=== PATIENT | female | born 1990 | race Caucasian/White ===

== ENCOUNTER 2021-08-27 08:46 | Inpatient (IN) ==
[2021-08-27] MEDS ORDERED: OXYTOCIN 30 UNITS/500 ML BAG IV PRN ×2 (19:17)
[2021-08-27 19:35] LABS: Hematocrit (blood only) 40.7 % (37-47); Hemoglobin 13.9 g/dL (12.0-16.0); Mean Corpuscular Hemoglobin 30.7 pg (25-34); Mean Corpuscular Hgb Conc 34.2 g/dL (32-36); Mean Corpuscular Volume 89.8 fL (80-100); Mean Platelet Volume 11.5 fL (7.4-10.4); Platelet Count 195 K/uL (130-400); RDW Coefficient of Variation 13.8 % (11.5-14.5); RDW Standard Deviation 44.7 fL (36.4-46.3); Red Blood Count 4.53 M/uL (4.2-5.4); White Blood Count 10.78 K/uL (4.8-10.8)
--- NOTE | 2021-08-27 19:38 | History & Physical Report ---
Date of Service August 27, 2021 Assessment & Plan (1) Hypothyroid in , antepartum: Plan: 31yo at 39w2d GA. Presents for IOL for insulin dependent gDM. 1. Fetus: Cat 1 2. Labor: S/p Bobby. Pitocin per protocol 3. GBS negative 4. A2gDM: BG q2hr 5. Vitals: WNL (2) Epilepsy affecting , antepartum: (3) Insulin controlled gestational diabetes mellitus (GDM) during : Admission and Anticipated Discharge Date Admission Date: August 27, 2021 History of Present Illness Primary Care Provider: Tegan Watson 31yo at 39w2d GA. Presents for IOL for insulin dependent gDM. Complicated by: Hypothyroid *Check TFTs Q4wks(recurring order) PCP orders thyroid meds Epilepsy On Lamictal. 200 mg daily On extra folic acid Sees [facility] neuro, will make apt Unable to obtain heart views on anatomy * Echo (06/12/21 @ [facility] [place] - small aortic valve - repeat 4w later, similar findings, ok for delivery at [facility]. Rec echo after delivery. GDM on insulin *Wkly NSTs @32wks and Twice wkly @36wks *Serial growth US @28wks *Deliver by [facility] 07/27 LABS: OB Labs: Blood Type O Positive 01/26/21 Antibody Screen NEGATIVE 01/26/21 Hemoglobin 12.5 g/dL (12.0-16.0) 08/22/21 Hematocrit 38.1 % (37-47) 08/22/21 Mean Corpuscular Volume 90.9 fL (80-100) 08/22/21 Platelet Count 187 K/uL (130-400) 08/22/21 Rubella IgG Antibody Immune (Immune) 01/26/21 Rapid Plasma Reagin Nonreactive (Nonreactive) 01/26/21 Hepatitis B Surface Antigen Neg (Neg) 01/26/21 HIV (1&2) Ab and P24 Ag, 4th Gener Neg (Neg) 01/26/21 Glucose 1 Hour 50 gm Load 137 mg/dl (70-130) H 03/23/21 OB Optional Labs: Chlamydia trachomatis RNA NOT DETECTED (NOT DETECTED) 01/26/21 Neisseria gonorrhoeae RNA NOT DETECTED (NOT DETECTED) 01/26/21 Thyroid Stimulating Hormone (TSH) 2.357 uIu/ml (0.300-4.500) 08/16/21 Labs Reviewed: declines genetics/cf/sma. Allergies Allergy/AdvReac Type Severity Reaction Status Date / Time No Known Drug Allergies Allergy Verified 08/24/21 12:10 Home Medications Medication Instructions Recorded Confirmed Type escitalopram oxalate 20 mg tablet 20 mg PO DAILY 09/07/20 08/27/21 History (Lexapro) prenat.vits,stella,[id number] PO 09/07/20 08/24/21 History acetone (urine) test (Ketone Urine #50 ea 06/29/21 08/24/21 Rx Test) blood sugar diagnostic (OneTouch #150 ea 06/29/21 08/24/21 Rx Verio test strips) blood-glucose meter (OneTouch #1 ea 06/29/21 08/24/21 Rx Verio Flex meter) lancets 33 gauge (OneTouch Delica #150 ea 06/29/21 08/24/21 Rx Plus Lancet) insulin NPH isoph U-100 human 100 8 unit SUBCUT QPM #15 ml 07/17/21 08/27/21 Rx unit/mL (3 mL) subcutaneous pen (Novolin N Flexpen) pen needle, diabetic 32 gauge x #100 ea 07/17/21 08/24/21 Rx 5/32" (BD Ultra-Fine Laura Pen Needle) lamotrigine 200 mg tablet 200 mg PO DAILY #30 tab 07/19/21 08/27/21 Rx levothyroxine 50 mcg capsule 50 mcg PO DAILY 07/27/21 08/27/21 History [id number] 1 mg 1 tab PO DAILY 08/27/21 08/27/21 History tablet Patient History Medical History Abnormal electroencephalogram Anxiety Common migraine without aura Common migraine without aura Croup Depression Dysuria SABAS (generalized anxiety disorder) SABAS (generalized anxiety disorder) 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 Hypokalemia Varicella vaccination Surgical History S/P appendectomy S/P wisdom tooth extraction Family History (Updated 01/15/21 @ 11:05 by Oneida Guerrero) Sister Asthma Grandmother (Paternal) Diabetes Father Seizure disorder Migraine headache Denies family history of Ovarian cancer Breast cancer Colorectal cancer Social History (Updated 01/15/21 @ 11:06 by Oneida Guerrero) Smoking Status: Never smoker Hx Alcohol Use: No Hx Substance Use: No Preferred Language: Slovenian Communication Ability: Effective Academic Registrar Required: Voice Beliefs That Will Affect Care: None marital status: marital status details: Tong Santa [phone]) [phone] Current Living Situation: Spouse Current Living Situation Comment: lives with spouse, 3 dogs current occupational status: employed current occupation: [employer] Skills Feels Safe at Home: Yes Safety Concerns: Feels Safe At This Time Assistive Devices: None Physical Exam Genitourinary: Manual OB Exam: + cervical dilation 3 cm, + cervical effacement 70% and + station -2 OB Exam Monitor Tracing: + external FHT monitor used, + external uterine monitor used, + category I and + normal FHT variability; no early decelerations present, no late decelerations present and no variable decelerations Results & Data ([facility]) Vital Signs (Past 12 Hours) Vital Signs Pulse BP 08/27/21 19:22 136 H 128/87 Coding Level of Care Code None Diagnoses Hypothyroid in , antepartum O99.280; E03.9 Epilepsy affecting , antepartum O99.350; G40.909 Insulin controlled gestational diabetes mellitus (GDM) during O24.414
[2021-08-27] MEDS: LACTATED RINGER'S 1,000 ML IV PRN (20:34)
[2021-08-28] MEDS ORDERED: SODIUM CHLORIDE 0.9% INJ 10 ML VIAL ONE (00:59)
[2021-08-28] MEDS ORDERED: BUPIVACAINE 0.25% 30 ML VIAL ONE (00:59)
[2021-08-28] MEDS ORDERED: ePHEDrine sulfate 50 MG/ML AMP ONE (00:59)
[2021-08-28] MEDS ORDERED: fentaNYL citrate 100 MCG/2 ML VIAL ONE (00:59)
[2021-08-28] MEDS ORDERED: fentaNYL 2MCG/ML ROPIVACAINE 1.25MG/ML 100 ML BAG EPI ONE (01:00)
--- NOTE | 2021-08-28 01:00 | Labor Progress Brief Note ---
Date of Service August 28, 2021 Subjective Reason For Note: Routine Evaluation Assessment & Plan (1) Hypothyroid in , antepartum: Plan: 31yo at 39w2d GA. Presents for IOL for insulin dependent gDM. 1. Fetus: Cat 1 2. Labor: S/p Bobby. Pitocin per protocol, AROM clr 3. GBS negative 4. A2gDM: BG q2hr 5. Vitals: WNL (2) Epilepsy affecting , antepartum: (3) Insulin controlled gestational diabetes mellitus (GDM) during : Admission and Anticipated Discharge Date Admission Date: August 27, 2021 Physical Exam Genitourinary: Manual OB Exam: + cervical dilation 3 cm, + cervical effacement 70%, + station -2 and + amniotic fluid clear OB Exam Monitor Tracing: + external FHT monitor used, + external uterine monitor used, + category I and + normal FHT variability; no early decelerations present, no late decelerations present and no variable decelerations Results & Data ([facility]) Vital Signs (Past 12 Hours) Vital Signs Temp Pulse Resp BP 08/28/21 00:47 103 H 138/74 08/28/21 00:29 36.8 C 18 08/27/21 23:47 98 H 115/62 08/27/21 22:46 113 H 121/67 08/27/21 21:47 91 H 132/81 08/27/21 20:46 100 H 131/85 08/27/21 19:33 37.2 C 08/27/21 19:22 136 H 128/87 Coding Level of Care Code None Diagnoses Hypothyroid in , antepartum O99.280; E03.9 Epilepsy affecting , antepartum O99.350; G40.909 Insulin controlled gestational diabetes mellitus (GDM) during O24.414
[2021-08-28] MEDS ORDERED: NALOXONE HCL 1 MG in SODIUM CHLORIDE 0.9% 1000ML 1,000 ML IV PRN (01:14)
[2021-08-28] MEDS ORDERED: ePHEDrine sulfate 50 MG/ML AMP IV PRN (01:14)
[2021-08-28] MEDS ORDERED: fentaNYL 2MCG/ML ROPIVACAINE 1.25MG/ML 100 ML BAG EPI PRN (01:14)
[2021-08-28] MEDS ORDERED: diphenhydrAMINE 50 MG/ML VIAL IV PRN (01:14)
[2021-08-28] MEDS ORDERED: ONDANSETRON INJ 2 MG/ML 2 ML VIAL IV PRN (01:14)
[2021-08-28] MEDS ORDERED: NALBUPHINE HCL INJ 10 MG/ML AMP IV PRN (01:14)
[2021-08-28] MEDS ORDERED: NALOXONE HCL 0.4 MG/1 ML VIAL/CARP IV PRN (01:14)
--- NOTE | 2021-08-28 01:22 | Anesthesiology Consultation ---
Date of Service August 28, 2021 Assessment & Plan Chart Review Chart Review: Patient NOT seen in Pre Admission Testing and Acceptable Risk for Labor Epidural Consults Requested none ASA ASA3 Proposed Anesthesia Anesthesia Type: Labor Epidural and CSE Risk / Benefits Reviewed With: PT / POA / Parent / Guardian, Accepts Plan and Informed Consent Obtained History Height/Weight Height: 5 ft Weight: 86.183 kg Allergies Allergy/AdvReac Type Severity Reaction Status Date / Time No Known Drug Allergies Allergy Verified 08/24/21 12:10 Medications Home Medications Medication Instructions Recorded Confirmed Last Taken escitalopram oxalate 20 mg tablet 20 mg PO DAILY 09/07/20 08/27/21 08/26/21 (Lexapro) 2300 prenat.vits,stella,hjl-xluj-ytarb PO 09/07/20 08/24/21 08/25/21 acetone (urine) test (Ketone Urine #50 ea 06/29/21 08/24/21 Unknown Test) blood sugar diagnostic (OneTouch #150 ea 06/29/21 08/24/21 Unknown Verio test strips) blood-glucose meter (OneTouch #1 ea 06/29/21 08/24/21 Unknown Verio Flex meter) lancets 33 gauge (OneTouch Delica #150 ea 06/29/21 08/24/21 Unknown Plus Lancet) insulin NPH isoph U-100 human 100 8 unit SUBCUT QPM #15 ml 07/17/21 08/27/21 08/26/21 23:00 unit/mL (3 mL) subcutaneous pen (Novolin N Flexpen) pen needle, diabetic 32 gauge x #100 ea 07/17/21 08/24/21 Unknown 5/32" (BD Ultra-Fine Laura Pen Needle) lamotrigine 200 mg tablet 200 mg PO DAILY #30 tab 07/19/21 08/27/21 08/26/21 2300 levothyroxine 50 mcg capsule 50 mcg PO DAILY 07/27/21 08/27/21 08/27/21 0700 dbpfqjir-dbq-[id number]-FA 1 mg 1 tab PO DAILY 08/27/21 08/27/21 Unknown tablet Active Medications Generic Name Dose Route Start Last Admin Trade Name Freq PRN Reason Stop Dose Admin Oxytocin 30 units in 500 mls @ 10 mls/hr 08/27/21 19:17 02/08/22 00:30 Pitocin IV 08/29/21 19:16 0.72 units/hr .Q24H PRN 12 mls/hr Labor Induction/Augmentation Titration Protocol 0.6 UNITS/HR Lactated Ringer's 1,000 mls @ 125 mls/hr 08/27/21 19:17 08/27/21 20:34 Lr IV 08/29/21 19:16 125 mls/hr .Q8H PRN Administration L&D Protocol Protocol NPO Date Last Intake of Fluids: 08/28/21 Time Last Intake of Fluids: 00:30 Date Last Intake of Solids: 08/27/21 Time Last Intake of Solids: 15:00 Past Medical History Medical History Abnormal electroencephalogram Anxiety Common migraine without aura Croup Depression Dysuria SABAS (generalized anxiety disorder) Generalized non-convulsive epilepsy Hypokalemia Hypothyroid in , antepartum Insulin controlled gestational diabetes mellitus (GDM) during Exercise / Class Metabolic Activity II 4-5 Yardwork/Stairs/Walk up hill Past Family History Family History Sister Asthma Grandmother (Paternal) Diabetes Father Seizure disorder Migraine headache Denies family history of Ovarian cancer Breast cancer Colorectal cancer Past Surgical History Surgical History S/P appendectomy S/P wisdom tooth extraction Past Anesthesia History No Hx of Anesthesia Complications and No Family Hx of Anesthesia Complications History of PONV No Hx of PONV and History of PONV Social History Smoking Status: Never smoker Hx Alcohol Use: No Hx Substance Use: No Review of Systems no chest pain or sob Physical Exam Vital Signs Last Vital Signs Temp 36.8 C 08/28/21 00:29 Pulse 127 H 08/28/21 01:17 Resp 18 08/28/21 00:29 BP 138/74 08/28/21 00:47 Pulse Ox 91 08/28/21 01:17 ENMT Mouth: no TMJ abnormality Thyromental Distance: > or= 3.5 Finger Breadths Mallampati Class: II Neck normal visual inspection Respiratory normal respiratory effort Auscultation: lungs clear to auscultation bilaterally Cardiovascular Rate/Rhythm: regular rate and regular rhythm Musculoskeletal Spine: normal cervical ROM Neurologic moves all extremities Psychiatric Orientation: alert and oriented x 3 Testing Laboratory Results 08/27/21 19:27 Blood Type O Positive 08/27/21 19:27 Antibody Screen NEGATIVE 08/27/21 19:27 08/28/21 08/27/21 08/27/21 00:18 22:00 20:08 POC Glucose 89 93 85
[2021-08-28] MEDS: LACTATED RINGER'S 1,000 ML IV PRN ×2 (01:28→05:56)
[2021-08-28] MEDS ORDERED: CALCIUM CARBONATE 500 MG CHEWABLE TAB PO PRN (04:09)
[2021-08-28] MEDS ORDERED: CALCIUM CARBONATE 500 MG CHEWABLE TAB ONE (04:18)
[2021-08-28] MEDS ORDERED: LIDOCAINE 1% LOCAL 20 ML VIAL ONE (09:01)
[2021-08-28] MEDS ORDERED: OXYTOCIN 30 UNITS/500 ML BAG IV PRN (09:10)
[2021-08-28] MEDS ORDERED: DIPHTHERIA/TETANUS/PERTUSSIS 0.5 ML SYR/VIAL IM ONE (09:10)
[2021-08-28] MEDS ORDERED: HYDROCORTISONE ACETATE 25 MG SUPP PR PRN (09:10)
[2021-08-28] MEDS ORDERED: bisacodyL 10 MG SUPP PR PRN (09:10)
[2021-08-28] MEDS ORDERED: BENZOCAINE 20% AER SPR 82.5 GM CAN EXT PRN (09:10)
--- NOTE | 2021-08-28 09:39 | Anesthesia Procedure Note ---
Date of Service August 28, 2021 Anesthesia Post Epidural Note Vital Signs Vital Signs: Temp Pulse Resp BP Pulse Ox 36.6 C 125 H 18 140/63 96 08/28/21 07:18 08/28/21 09:37 08/28/21 07:18 08/28/21 09:28 08/28/21 09:37 Notes Mental Status: alert / awake / arousable and participated in evaluation Patient Amnestic to Procedure: Yes Nausea / Vomiting: adequately controlled Pain: adequately controlled Airway Patency, RR, SpO2: stable & adequate BP & HR: stable & adequate Hydration State: stable & adequate Anesthetic Complications: no major complications apparent and Pt Satisfied with anesthetic care
--- NOTE | 2021-08-28 09:42 | Delivery Summary ---
DATE OF SERVICE: 08/28/2021. PROCEDURE: Normal spontaneous vaginal delivery with right labial laceration repair. SURGEON: Darshan Burns MD. PREOPERATIVE DIAGNOSES: 1. Single intrauterine at 39 weeks 3 days gestational age. 2. Insulin-dependent gestational diabetes. 3. Hypothyroidism affecting . 4. Epilepsy affecting . POSTOPERATIVE DIAGNOSES: 1. Single intrauterine at 39 weeks 3 days gestational age. 2. Insulin-dependent gestational diabetes. 3. Hypothyroidism affecting . 4. Epilepsy affecting . 5. Status post procedure. ESTIMATED BLOOD LOSS: 200 mL DRAINS: Straight cath at the completion of the case. URINE OUTPUT: Per straight cath. COMPLICATIONS: None. FINDINGS: Viable male infant with weight pending and Apgars of 8 and 9 at one and five minutes respe ctively. DESCRIPTION OF PROCEDURE: The patient progressed to 10 cm dilated, 100% effaced, positive 2 station, pushed over intact perineum with epidural anesthesia, delivered a viable male with weight and Apgars as noted above. Head of the delivered in IVETT position, restituted right transverse. No nuchal cord was noted. Body and shoulders quickly followed. was noted to be vigorous so on after delivery and 1 minute delayed cord clamping was initiated. Cord was then double clamped and cut. was then taken to the waiting nursery staff for further evaluation, continued to be vig orous. Cord segment and cord blood was obtained. Attention was then turned to delivery of placenta, which was delivered intact, 3-vessel cord, gentle cord traction. Upon inspection of the perineum, vagina, cervix, there was noted to be a right labial laceration, which was repaired with 3-0 Vicryl interrupted stitch. Needle, sponge, and instrument co unts were correct at the completion of the case. Mother and stable in the immediate post-deli very period. Job ID: [id number]
[2021-08-28] MEDS: lamoTRIgine 100 MG TAB PO SCH (10:16)
[2021-08-28] MEDS: ESCITALOPRAM OXALATE 20 MG TAB PO SCH (10:17)
[2021-08-28] MEDS: LEVOTHYROXINE SODIUM 50 MCG TABLET PO SCH (10:17)
[2021-08-28] MEDS: IBUPROFEN 600 MG TAB PO PRN ×2 (11:49→19:44)
[2021-08-28] MEDS: ACETAMINOPHEN 325 MG TAB PO PRN (16:24)
[2021-08-28] MEDS: DOCUSATE SODIUM 100 MG CAP PO SCH (20:49)
[2021-08-29] MEDS: LEVOTHYROXINE SODIUM 50 MCG TABLET PO SCH (06:11)
--- NOTE | 2021-08-29 06:12 | Obstetrical Progress Note ---
Date of Service <Denise Alejo DO - Last Filed: 08/29/21 06:45> August 29, 2021 Assessment & Plan <Denise Alejo DO - Last Filed: 08/29/21 06:45> (1) Epilepsy affecting , antepartum: (2) Hypothyroid in , antepartum: (3) Insulin controlled gestational diabetes mellitus (GDM) during : (4) Encounter for care and examination after delivery: 31 yo post op day1 from with GDM, hypothyroidism, epilepsy affecting , doing well. -Continue routine post care. -vital signs reviewed and WNL (Tmax 37.2) -Blood Type O+, GBS-, Rubella immune -Encourage ambulation, monitor and control pain with Motrin, tylenol PRN, resume regular diet, monitor lochia -encourage formula feeding -hemoglobin 13.9 -patient feeling comfortable today, interested in home Day #:: 1 <Radha Burton MD, FACOG - Last Filed: 08/29/21 07:25> (1) Epilepsy affecting , antepartum: (2) Hypothyroid in , antepartum: (3) Insulin controlled gestational diabetes mellitus (GDM) during : (4) Encounter for care and examination after delivery: Subjective <Denise Alejo DO - Last Filed: 08/29/21 06:45> Ambulation: ambulating normally Voiding: no voiding problems Passing Gas:: Yes Diet Tolerance:: regular diet Lochia:: Small Feeding Type:: bottle feeding Current Pain Level(1-10): 3 Review of Systems Denies fever, chills, sweats Denies shortness of breath, difficulty breathing, chest pain, palpitations, chest pressure. Denies breast pain. Denies dysuria. Denies headache or changes in vision. Physical Exam <Denise Alejo DO - Last Filed: 08/29/21 06:45> General: Alert, oriented. No acute distress. Cardiac: Regular rate and rhythm, no murmurs/rubs/gallops. Respiratory: Clear to auscultation bilaterally a/p, no wheezes/rales/rhonchi. No increased work of breathing. Symmetrical chest rise. No respiratory distress. Abdomen: Soft, nontender, nondistended. Bowel sounds present. Uterus: Uterine fundus firm, palpable 2 cm below umbilicus. Lower Extremities: No lower extremity edema or swelling. No deep calf pain. Bernie's negative bilaterally.. Results & Data ([facility]) <Denise Alejo DO - Last Filed: 08/29/21 06:45> Vital Signs (Past 12 Hours) Vital Signs Temp Pulse Pulse Resp BP BP 08/29/21 04:25 36.4 C L 92 H 16 107/75 08/28/21 23:45 36.8 C 90 16 100/52 L 08/28/21 19:30 36.9 C 105 H 18 118/70 <Radha Burton MD, FACOG - Last Filed: 08/29/21 07:25> Co-Signing Physician Notes Resident Physician Supervision Note: I was present with Dr. Alejo during the history and exam. I discussed the case with the resident and agree with the findings and plan as documented in the note. Any exceptions or clarifications are listed here: [None] Documented By: Radha Burton MD, FACOG Resident Activity Tracking <Denise Alejo DO - Last Filed: 08/29/21 06:45> Resident Involvement: Resident Care Provided Care Provided: Adult Hospital Medicine
[2021-08-29 07:08] LABS: Hematocrit (blood only) 32.4 % (37-47); Hemoglobin 10.8 g/dL (12.0-16.0)
[2021-08-29] MEDS: DOCUSATE SODIUM 100 MG CAP PO SCH ×2 (08:48→21:10)
[2021-08-29] MEDS: PRENATAL VITAMIN 1 TAB PO SCH (08:48)
[2021-08-29] MEDS: IBUPROFEN 600 MG TAB PO PRN ×2 (08:51→21:11)
[2021-08-29] MEDS: lamoTRIgine 100 MG TAB PO SCH (08:52)
[2021-08-29] MEDS: ESCITALOPRAM OXALATE 20 MG TAB PO SCH (08:52)
[2021-08-29] MEDS ORDERED: Nursing to Pharmacy Communication SCH (18:30)
[2021-08-29] MEDS ORDERED: bisacodyL 5 MG TABEC PO SCH (20:00)
[2021-08-29] MEDS ORDERED: ESCITALOPRAM OXALATE 20 MG TAB PO SCH (21:00)
[2021-08-29] MEDS ORDERED: lamoTRIgine 100 MG TAB PO SCH (21:00)
[2021-08-29] MEDS: ACETAMINOPHEN 325 MG TAB PO PRN (23:09)
--- NOTE | 2021-08-30 06:02 | Obstetrical Progress Note ---
Date of Service <Denise Alejo - Last Filed: 08/30/21 06:29> August 30, 2021 Assessment & Plan <Denise MeloDO - Last Filed: 08/30/21 06:29> (1) Epilepsy affecting , antepartum: (2) Hypothyroid in , antepartum: (3) Insulin controlled gestational diabetes mellitus (GDM) during : (4) Encounter for care and examination after delivery: 31 yo post op day2 from with GDM, hypothyroidism, epilepsy affecting , doing well. -Continue routine post care. -vital signs reviewed and WNL (Tmax 37.2) -Blood Type O+, GBS-, Rubella immune -Encourage ambulation, monitor and control pain with Motrin, tylenol PRN, resume regular diet, monitor lochia -encourage formula feeding -hemoglobin 10.8 -patient feeling comfortable today, interested in home Day #:: 2 <Cari Espinoza MD - Last Filed: 08/30/21 07:36> (1) Epilepsy affecting , antepartum: (2) Hypothyroid in , antepartum: (3) Insulin controlled gestational diabetes mellitus (GDM) during : (4) Encounter for care and examination after delivery: Subjective <Denise MeloDO - Last Filed: 08/30/21 06:29> Ambulation: ambulating normally Voiding: no voiding problems Passing Gas:: Yes Diet Tolerance:: regular diet Lochia:: Small Feeding Type:: bottle feeding Current Pain Level(1-10): 1 Review of Systems Denies fever, chills, sweats Denies shortness of breath, difficulty breathing, chest pain, palpitations, chest pressure. Denies breast pain. Denies dysuria. Denies headache or changes in vision. Physical Exam <Denise MeloDO - Last Filed: 08/30/21 06:29> General: Alert, oriented. No acute distress. Cardiac: Regular rate and rhythm, no murmurs/rubs/gallops. Respiratory: Clear to auscultation bilaterally a/p, no wheezes/rales/rhonchi. No increased work of breathing. Symmetrical chest rise. No respiratory distress. Abdomen: Soft, nontender, nondistended. Bowel sounds present. Uterus: Uterine fundus firm, palpable 2 cm below umbilicus. Lower Extremities: No lower extremity edema or swelling. No deep calf pain. Bernie's negative bilaterally.. Results & Data ([facility]) <Denise Alejo DO - Last Filed: 08/30/21 06:29> Vital Signs (Past 12 Hours) Vital Signs Temp Pulse Resp BP 08/29/21 23:10 36.6 C 82 18 118/80 08/29/21 20:05 36.7 C 92 H 18 121/80 <Cari Espinoza MD - Last Filed: 08/30/21 07:36> Co-Signing Physician Notes Resident Physician Supervision Note: I interviewed and examined the patient. Discussed with Dr. Alejo and agree with findings and plan as documented in the note. Any exceptions or clarifications are listed here: PP2 s/p , doing well. VSS, exam benign and wnl. Stable for d/c home Documented By: Cari Espinoza MD Resident Activity Tracking <Denise Alejo DO - Last Filed: 08/30/21 06:29> Resident Involvement: Resident Care Provided Care Provided: Adult Hospital Medicine
[2021-08-30] MEDS: LEVOTHYROXINE SODIUM 50 MCG TABLET PO SCH (06:18)
[2021-08-30] MEDS: DOCUSATE SODIUM 100 MG CAP PO SCH (07:43)
[2021-08-30] MEDS: PRENATAL VITAMIN 1 TAB PO SCH (07:43)
== END 2021-08-30 15:45 | disposition home or self-care (01) | DRG 806 ==
LOC: 4S1 19:10 → 4S2 08-28 11:13
DX: E03.9 Hypothyroidism, unspecified; G40.409 Other generalized epilepsy and epileptic syndromes, not intractable, without status epilepticus; O70.0 First degree perineal laceration during delivery; Z79.890 Hormone replacement therapy; Z79.899 Other long term (current) drug therapy; Z37.0 Single live birth; O99.354 Diseases of the nervous system complicating childbirth; Z3A.39 39 weeks gestation of pregnancy; O24.424 Gestational diabetes mellitus in childbirth, insulin controlled; O99.284 Endocrine, nutritional and metabolic diseases complicating childbirth; Z79.4 Long term (current) use of insulin